=== PATIENT | female | born 1950 | race Caucasian/White ===

== ENCOUNTER 2021-06-29 07:33 | Day surgery (SDC) | payer MEDICARE ==
[~2021-06-29] VITALS: Ht 162.6 cm; Wt 63.2 kg
[2021-06-29] MEDS ORDERED: Flonase 0.05% N16 GM (07:49)
[2021-06-29] MEDS ORDERED: ERGO400 (07:49)
[2021-06-29] MEDS ORDERED: ZINC15 (07:50)
[2021-06-29] MEDS ORDERED: NAPR500EC (07:50)
[2021-06-29] MEDS ORDERED: Vitamin B-12100 MCG (07:50)
[2021-06-29] MEDS ORDERED: LACT (07:50)
== END 2021-06-29 10:10 | disposition home or self-care (01) ==
LOC: ORSCSDS 07:33
PROVIDERS: Surgery
PROC: 0DB48ZX Excision of Esophagogastric Junction, Via Natural or Artificial Opening Endoscopic, Diagnostic (ICD-10-PCS; principal; 2021-06-29 08:45)
PROC: 0DB78ZX Excision of Stomach, Pylorus, Via Natural or Artificial Opening Endoscopic, Diagnostic (ICD-10-PCS; principal; 2021-06-29 08:45)
PROC: 0DBK8ZX Excision of Ascending Colon, Via Natural or Artificial Opening Endoscopic, Diagnostic (ICD-10-PCS; principal; 2021-06-29 08:45)
PROC: 0DBP8ZX Excision of Rectum, Via Natural or Artificial Opening Endoscopic, Diagnostic (ICD-10-PCS; principal; 2021-06-29 08:45)
DX: Z12.11 Encounter for screening for malignant neoplasm of colon (principal); D12.2 Benign neoplasm of ascending colon; D12.8 Benign neoplasm of rectum; R10.13 Epigastric pain; K21.9 Gastro-esophageal reflux disease without esophagitis; K29.70 Gastritis, unspecified, without bleeding; K20.90 Esophagitis, unspecified without bleeding
CPT/HCPCS: 88305; 88342; J2704; J7120

== ENCOUNTER 2022-12-31 10:26 | Day surgery (SDC) | payer MEDICARE ==
[~2022-12-31] VITALS: Ht 160 cm; Wt 63.6 kg
[~2022-12-31 10:26] MED LIST: ERGO400; Flonase 0.05% N16 GM; LACT; NAPR500EC; Vitamin B-12100 MCG; ZINC15
--- NOTE | 2022-12-31 11:08 | NUR ---
12/31/22 1108 Rocio Cross TETRACAINE DROP IN RIGHT EYE PLACED AT 1055 PLEDGET PLACED IN RIGHT EYE AT 1056 PATIENT TOLERATED WELL.
[2022-12-31 12:17] VITALS: BP 109/92
== END 2022-12-31 12:41 | disposition home or self-care (01) ==
LOC: ORSCSDS 10:26
PROVIDERS: Student in an Organized Health Care Education/Training Program
PROC: 08RJ3JZ Replacement of Right Lens with Synthetic Substitute, Percutaneous Approach (ICD-10-PCS; 2022-12-31)
PROC: 08923ZZ Drainage of Right Anterior Chamber, Percutaneous Approach (ICD-10-PCS; principal; 2022-12-31 11:45)
DX: H25.13 Age-related nuclear cataract, bilateral (principal); H40.1112 Primary open-angle glaucoma, right eye, moderate stage; H40.1121 Primary open-angle glaucoma, left eye, mild stage; Z79.899 Other long term (current) drug therapy
CPT/HCPCS: J2250; J3010; J7040; V2632

== ENCOUNTER 2023-01-14 08:38 | Day surgery (SDC) | payer MEDICARE ==
[~2023-01-14] VITALS: Ht 162.6 cm; Wt 62.8 kg
--- NOTE | 2023-01-14 09:06 | NUR ---
01/14/23 0906 Sarah Groves CALL LIGHT WITHIN REACH. TIFFIN IN LEFT EYE AT 0904 AND CEDRIC IN AT 0905
[2023-01-14 10:11] VITALS: BP 129/76
--- NOTE | 2023-01-14 10:36 | NUR ---
01/14/23 1036 Hunter Lee IV REMOVED INTACT. SITE WNL.
== END 2023-01-14 10:30 | disposition home or self-care (01) ==
LOC: ORSCSDS 08:38
PROVIDERS: Student in an Organized Health Care Education/Training Program
PROC: 08RK3JZ Replacement of Left Lens with Synthetic Substitute, Percutaneous Approach (ICD-10-PCS; principal; 2023-01-14 10:00)
DX: H25.12 Age-related nuclear cataract, left eye (principal); Z96.1 Presence of intraocular lens; H40.1112 Primary open-angle glaucoma, right eye, moderate stage; H40.1121 Primary open-angle glaucoma, left eye, mild stage; F41.9 Anxiety disorder, unspecified
CPT/HCPCS: J2250; J3010; J7040; V2632

== ENCOUNTER → 2023-06-05 | Outpatient (CLI) | payer MEDICARE ==
[2023-06-05 19:13] LABS: Percent Saturation 29.6 % (15.0-50.0)
[2023-06-08 08:44] LABS: ANA PATTERN Homogeneous; ANTINUCLEAR AB (ANA),HEP-2,IGG Detected (<1:80)
== END ==
LOC: LAB 17:28 → LAB SHORT 17:28
PROVIDERS: Internal Medicine
DX: L65.9 Nonscarring hair loss, unspecified (principal); R73.03 Prediabetes; R79.89 Other specified abnormal findings of blood chemistry
CPT/HCPCS: 82728; 83036; 83540; 83550; 85651; 86039

== ENCOUNTER → 2025-01-14 | Outpatient (CLI) | payer MEDICARE ==
[~2025-01-14] MED LIST changes: +ALIGN1 EACH; +LOSA25; +MINO2.5
[2025-01-14 14:51] LABS: BASOPHILS ABSOLUTE AUTO 0.04 K/mm3 (0.00-0.23); BASOPHILS PERCENT AUTO 1 % (0-2); EOSINOPHILS ABSOLUTE AUTO 0.20 K/mm3 (0.00-0.68); EOSINOPHILS PERCENT AUTO 4 % (0-6); Hematocrit 39.9 % (33.0-51.0); Hemoglobin 13.8 g/dL (11.5-16.0); IMMATURE GRAN ABSOLUTE AUTO 0.01 K/mm3 (0.00-0.10); IMMATURE GRAN PERCENT AUTO 0 % (0-1); LYMPHOCYTES ABSOLUTE AUTO 1.13 K/mm3 (0.84-5.20); LYMPHOCYTES PERCENT AUTO 23 % (21-46); MONOCYTES ABSOLUTE AUTO 0.62 K/mm3 (0.16-1.47); MONOCYTES PERCENT AUTO 13 % (4-13); Mean Corpuscular HGB Conc 34.6 g/dL (31.5-36.5); Mean Corpuscular Volume 92 fL (80-100); NEUTROPHILS ABSOLUTE AUTO 2.97 K/mm3 (1.96-9.15); NEUTROPHILS PERCENT AUTO 60 % (41-73); NRBC ABSOLUTE 0.00 K/mm3 (0.00-0.02); NRBC Auto 0.0 /100 WBC (0.0-0.2); Platelet Count 223 K/mm3 (150-400); RDW Coefficient Variation 13.0 % (11.7-14.2); RDW Standard Deviation 43.9 fL (35.1-46.3)
[2025-01-14 15:26] LABS: Alanine Aminotransfer (ALT/SGP 15 U/L (12-78); Albumin, Blood 3.6 g/dL (3.4-5.0); Albumin/Globulin Ratio 1.3 (0.8-1.8); Anion Gap 10 mmol/L (3-11); Aspartate Aminotrans (AST/SGOT 19 U/L (12-37); Bilirubin, Total 0.5 mg/dL (0.1-1.0); Blood Urea Nitrogen 13 mg/dL (8-24); CHOL/HDL RATIO 2.8; CO2, Blood 25 mmol/L (21-32); Calcium, Blood 8.8 mg/dL (8.5-10.1); Chloride, Blood 111 mmol/L (98-108); Cholesterol 166 mg/dL (50-200); Creatinine, Blood 0.88 mg/dL (0.40-1.00); Globulin, Blood 2.8 g/dL (2.2-4.0); Glucose, Blood 105 mg/dL (70-99); HDL Cholesterol 59 mg/dL (>39); LDL/HDL RATIO 1.6; Low Density Lipoprotein Chol 92 mg/dL (0-110); Potassium, Blood 4.5 mmol/L (3.5-5.5); Sodium, Blood 141 mmol/L (136-145); Total Protein, Blood 6.4 g/dL (6.4-8.2); Triglycerides 74 mg/dL (30-160); Very Low Density Lipoprot Chol 14 mg/dL (6-32)
== END | disposition home or self-care (01) ==
LOC: LAB SHORT 13:28 → LAB 13:28
PROVIDERS: Internal Medicine
DX: I10 Essential (primary) hypertension (principal); R73.03 Prediabetes
CPT/HCPCS: 80053; 80061; 83036; 85025